=== PATIENT | female | born 1985 | race African-American/Black ===

== ENCOUNTER 2016-12-06 12:49 | Emergency (ER) | payer MEDICAID ==
[~2016-12-06] VITALS: Ht 185.4 cm; Wt 101.6 kg
[~2016-12-06 12:49] MED LIST: ALPR0.254
[2016-12-06 13:57] LABS: Basophils # (auto) 0 uL; Eosinophils # (auto) 0.1 uL; Eosinophils % (auto) 1.5 % (0.0-7.0); Hematocrit 42.2 % (36.0-46.0); Hemoglobin 13.7 g/dL (12.2-16.2); Lymphocytes # (auto) 0.9 uL; Lymphocytes % (auto) 10.5 % (10.0-50.0); Mean Corpuscular Hemoglobin 30.4 pg (28.0-32.0); Mean Corpuscular Hgb Conc. 32.5 g/dL (32.0-36.0); Mean Corpuscular Volume 93.3 fL (80.0-100.0); Mean Platelet Volume 7.5 fL (7.4-10.4); Monocytes # (auto) 0.4 uL; Monocytes % (auto) 4.9 % (0.0-12.0); Neutrophils # (auto) 7.2 uL; Neutrophils % (auto) 83.1 % (37.0-80.0); Platelet Count (auto) 241 10^3/uL (140-450); Red Cell Distribution Width 13.3 % (11.6-16.0); White Blood Cell 8.7 10^3/uL (4.4-10.8)
[2016-12-06 14:21] LABS: Albumin 3.4 g/dL (3.4-5.0); BUN/Creatinine Ratio 13.8; Calcium 8.5 mg/dL (8.5-10.1); Potassium 3.4 mmol/L (3.5-5.1)
[2016-12-06 14:24] LABS: Bilirubin, Total 0.3 mg/dL (0.2-1.0); Total Protein 6.9 g/dL (6.4-8.2)
[2016-12-06 15:21] VITALS: BP 110/88
[2016-12-06] MEDS ORDERED: KETOROLAC TROMETH 60MG/2ML VIAL IM ONE (16:15)
== END 2016-12-06 16:40 | disposition home or self-care (01) ==
LOC: ER 12:51
DX: R07.89 Other chest pain (principal); F41.9 Anxiety disorder, unspecified; F17.210 Nicotine dependence, cigarettes, uncomplicated; F12.10 Cannabis abuse, uncomplicated
CPT/HCPCS: 36415; 80053; 84484; 85025; 93005; 96372; 99285; J1885

== ENCOUNTER 2017-12-09 08:13 | Emergency (ER) | payer MEDICAID ==
[~2017-12-09] VITALS: Ht 185.4 cm; Wt 95.3 kg
[2017-12-09 09:38] VITALS: BP 121/60
[2017-12-09] MEDS ORDERED: cefTRIAXone SOD 1,000 MG VL IM ONE (13:15)
== END 2017-12-09 13:37 | disposition home or self-care (01) ==
LOC: ER 08:13
DX: N63.0 Unspecified lump in unspecified breast (principal); Z83.3 Family history of diabetes mellitus; Z82.49 Family history of ischemic heart disease and other diseases of the circulatory system
CPT/HCPCS: 76642; 96372; 99284; J0696

== ENCOUNTER 2022-10-11 17:31 | Emergency (ER) | payer MEDICAID ==
[~2022-10-11] VITALS: Ht 185.4 cm; Wt 111.1 kg
[2022-10-11 20:55] VITALS: BP 128/71
== END 2022-10-11 21:16 | disposition home or self-care (01) ==
LOC: ER 17:35
DX: L02.412 Cutaneous abscess of left axilla (principal); F17.210 Nicotine dependence, cigarettes, uncomplicated; F12.10 Cannabis abuse, uncomplicated

== ENCOUNTER 2025-06-28 19:22 | Emergency (ER) | payer MEDICAID ==
[~2025-06-28] VITALS: Ht 185.4 cm; Wt 105.9 kg
--- NOTE | 2025-06-28 19:56 | ED.PDOC ---
GI ASSESSMENT HPI Comments 39 year old female presents to the ED with a chief complaint of nausea/vomiting onset 3 days. Patient states she began experiencing nausea/vomiting 3 days ago after eating at [employer]. Patient has been taking nausea medication, has temporary relief of symptoms. Patient states she noticed fatigue, poor appetite, has not being able to drink/eat due to symptoms, intermittent abdominal pain after episodes of vomiting. Denies any PMHx as well as diarrhea, chest pain, shortness of breath, melena, hematemesis, dysuria, hematuria, fever, chills. No other associated symptoms, modifiers, recent injuries or sick contacts present at this time. Chief Complaint: Nausea/Vomiting Time Seen by MD: 19:43 Primary Care Provider: unknown Reviewed Notes: Medications, Allergies Allergies: Coded Allergies: NO KNOWN ALLERGIES (Unverified , 04/30/12) Home Meds Active Scripts Potassium Chloride (Potassium Chloride ER) 10 Meq Tab, 10 MEQ PO BID for 10 Days, #20 TAB Prov:MARLENA LAUREANO MD 06/28/25 Metoclopramide Hcl (Reglan) 10 Mg Tab, 10 MG PO Q6HP PRN, #30 TAB Prov:MARLENA LAUREANO MD 06/28/25 Ondansetron HCl (Ondansetron Hydrochloride) 8 Mg Tab, 8 MG PO Q6HP PRN, #30 TAB Prov:MARLENA LAUREANO MD 06/28/25 Reported Medications Alprazolam (Alprazolam) 0.25 Mg Tab, #120 04/20/14 Information Source: Patient Mode of Arrival: Ambulatory Timing: Days Duration: Since onset Prehospital treatment: None Severity: Moderate Recent: None Recent Hx of: None Pain Location: Diffuse Modifying Factors: Nothing Associated sign and symptoms: Nausea, Vomiting, Abdominal Pain Past Medical History PAST MEDICAL HISTORY: Denies Surgical History: Denies all surgeries HAIR WORKER History: No Pertinent HAIR WORKER History Family History Family History: No family hx of DM, No family hx of Heart tawanna, No family hx of HTN Social History Smoker: Cigarettes Alcohol: Occasionally Drugs: Marijuana Lives In: Home Constitutional: reports: fatigue; denies: chills, diaphoresis, fever, malaise, sweats, weakness, others EENTM: denies: blurred vision, double vision, ear bleeding, ear discharge, ear drainage, ear pain, ear ringing, eye pain, eye redness, hearing loss, mouth pain, mouth swelling, nasal discharge, nose bleeding, nose congestion, nose pain, photophobia, tearing, throat pain, throat swelling, voice changes, others Respiratory: denies: cough, hemoptysis, orthopnea, SOB at rest, shortness of breath, SOB with excertion, stridor, wheezing, others Cardiovascular: denies: chest pain, dizzy spells, diaphoresis, Dyspnea on exertion, edema, irregular heart beat, left arm pain, lightheadedness, palpitations, PND, syncope, others Gastrointestinal: reports: nausea, vomiting; denies: abdomen distended, abdominal pain, blood streaked bowels, constipated, diarrhea, dysphagia, difficulty swallowing, hematemesis, melena, poor appetite, poor fluid intake, rectal bleeding, rectal pain, others Genitourinary: denies: abnormal vagina bleeding, burning, dyspareunia, dysuria, flank pain, frequency, hematuria, incontinence, pain, , vagina discharge, urgency, others Neurological: denies: dizziness, fainting, headache, left sided numbness, left sided weakness, numbness, paresthesia, pre-existing deficit, right sided numbness, right sided weakness, seizure, speech problems, tingling, tremors, weakness, others Musculoskeletal: denies: back pain, gout, joint pain, joint swelling, muscle pain, muscle stiffness, neck pain, others Integumetry: denies: bruises, change in color, change in hair/nails, dryness, laceration, lesions, lumps, rash, wounds, others Allergic/Immunocompromised: denies: Difficulty Healing, Frequent Infections, Hives, Itching, others Hematologic/Lymphatic: denies: anemia, blood clots, easy bleeding, easy bruising, swollen glands, others Endocrine: denies: excessive hunger, excessive sweating, excessive thirst, excessive urination, flushing, intolerance to cold, intolerance to heat, unexplained weight gain, unexplained weight loss, others Psychiatric: denies: anxiety, bipolar disorder, depression, hopeless, panic disorder, schizophrenia, sleepless, suicidal, others All Other Systems: Reviewed and Negative Physical Exam General Appearance: Normal HEENT: Normal ENT Inspection, Pharynx Normal, TMs Normal Neck: Full Range of Motion, Non-Tender, Normal, Normal Inspection Respiratory: Chest Non-Tender, Lungs Clear, No Accessory Muscle Use, No Respiratory Distress, Normal Breath Sounds Cardiovascular: No Edema, No JVD, No Murmur, No Gallop, Normal Peripheral Pulses, Regular Rate/Rhythm Breast Exam: Deferred Gastrointestinal: No Organomegaly, Non Tender, No Pulsatile Mass, Normal Bowel Sounds, Soft Genitalia: Deferred Pelvic: Deferred Rectal: Deferred Extremities: No calf tenderness, Normal capillary refill, Normal inspection, Normal range of motion, Non-tender, No pedal edema Musculoskeletal : Apperance: Normal Neurologic: Alert, interior design director II-XII nml as Tested, No Motor Deficits, Normal Affect, Normal Mood, No Sensory Deficits Cerebellar Function: Normal Reflexes: Normal Skin: Dry, Normal Color, Warm Lymphatic: No Adenopathy Was a procedure done? Was a procedure done?: No GI differential Dx Differential Diagnosis: Incomplete , Inevitable , Missed , Threatened , Bowel Obstruction, Cholangitis, Cholecystitis, Gastritis/PUD, Gastroenteritis, GI hemorrhage, Urinary Obstruction, Other X-Ray, Labs, Meds, VS Vital Signs Date Time Temp Pulse Resp B/P (MAP) Pulse Ox O2 Delivery O2 Flow Rate FiO2 06/29/25 00:22 18 96 Room Air* 0 21 06/29/25 00:22 98.0 68 68 131/61 (84) 94 98.0 06/28/25 19:25 97.8 90 18 102/66 96 97.8 Lab Test 06/28/25 19:49 Range/Units White Blood Count 9.0 4.4-10.8 10^3/uL Red Blood Count 4.78 4.0-5.20 10^6/uL Hemoglobin 14.9 12.2-16.2 g/dL Hematocrit 43.2 36.0-46.0 % Mean Corpuscular Volume 90.4 80.0-100.0 fL Mean Corpuscular Hemoglobin 31.3 28.0-32.0 pg Mean Corpuscular Hemoglobin Concent 34.6 32.0-36.0 g/dL Red Cell Distribution Width 13.5 11.8-14.3 % Platelet Count 306 140-450 10^3/uL Mean Platelet Volume 7.1 6.9-10.8 fL Neutrophils (%) (Auto) 50.5 37.0-80.0 % Lymphocytes (%) (Auto) 41.5 10.0-50.0 % Monocytes (%) (Auto) 6.9 0.0-12.0 % Eosinophils (%) (Auto) 0.4 0.0-7.0 % Basophils (%) (Auto) 0.7 0.0-2.0 % Neutrophils # (Auto) 4.5 1.6-8.6 10 ^3/uL Lymphocytes # (Auto) 3.7 0.4-5.4 10 ^3/uL Monocytes # (Auto) 0.6 0-1.3 10 ^3/uL Eosinophils # (Auto) 0 0-0.8 10 ^3/uL Basophils # (Auto) 0.1 0-0.2 10 ^3/uL Nucleated Red Blood Cells 0.2 % Sodium Level 141 136-145 mmol/L Potassium Level 3.3 L 3.5-5.1 mmol/L Chloride Level 105 98-107 mmol/L Carbon Dioxide Level 24 20-31 mmol/L Anion Gap 12 5-15 Blood Urea Nitrogen 13 9-23 mg/dL Creatinine 1.15 H 0.550-1.02 mg/dL Glomerular Filtration Rate Calc 62 >90 mL/min BUN/Creatinine Ratio 11.3 10.0-20.0 Serum Glucose 122 H 74-106 mg/dL Calcium Level 10.1 8.7-10.4 mg/dL Total Bilirubin 0.5 0.2-1.0 mg/dL Aspartate Amino Transferase (AST) 14 13-40 U/L Alanine Aminotransferase (ALT) 9 7-40 U/L Alkaline Phosphatase 101 46-116 U/L Total Protein 7.4 5.7-8.2 g/dL Albumin 4.9 H 3.2-4.8 g/dL Current Medications Medications (Trade) Dose Ordered Sig/Verónica Route Start Time Stop Time Status Last Admin Metoclopramide HCl (Reglan Injection) 10 mg ONCE ONCE IV 06/28/25 20:00 06/28/25 20:01 DC 06/28/25 20:00 Sodium Chloride 1,000 ml @ 1,000 mls/hr Q1H ONCE IVB 06/28/25 20:00 06/28/25 20:59 DC 06/28/25 20:00 Potassium Chloride (Klor-Con Tablet) 20 meq ONCE ONCE PO 06/28/25 21:15 06/28/25 21:16 DC 06/28/25 21:15 Time of 1ST Reevaluation: 20:13 Reevaluation 1ST: Unchanged Patient Education/Counseling: Diagnosis, Treatment, Prognosis Family Education/Counseling: No Family Present Additional Information The following tests were ordered, and results were reviewed by me: CBC, CMP,UA,PREGUA I discussed treatment and results with medical personnel and: patient Comprehensive systems review obtained and negative except for what is stated in the HPI. SEPSIS Sepsis Screen Date sepsis recognized/suspect: Jun 28, 2025 Time Sepsis recognized/suspect: 1924 Recent Procedure: No On Antibiotic Therapy: No Respiratory Rate >20: No Heart Rate >90: No Temp<36 C (96.8 F) or >38.3 C: No SBP <90 or MAP <65 mmHG: No New Acute Mental Status Change: No Is the patient on CPAP, BIPAP,: No Physician Orders Urinalysis (06/28/25 19:34) Test, Urine (06/28/25 19:34) Vital Signs Date Time Temp Pulse Resp B/P (MAP) Pulse Ox O2 Delivery O2 Flow Rate FiO2 06/29/25 00:22 18 96 Room Air* 0 21 06/29/25 00:22 98.0 68 68 131/61 (84) 94 98.0 06/28/25 19:25 97.8 90 18 102/66 96 97.8 Laboratory Tests Test 06/28/25 19:49 White Blood Count 9.0 10^3/uL (4.4-10.8) Medications Medications Dose Ordered Sig/Verónica Route Start Time Stop Time Status Last Admin Dose Admin Metoclopramide HCl 10 mg ONCE ONCE IV 06/28/25 20:00 06/28/25 20:01 DC 06/28/25 20:00 Potassium Chloride 20 meq ONCE ONCE PO 06/28/25 21:15 06/28/25 21:16 DC 06/28/25 21:15 Sodium Chloride 1,000 ml @ 1,000 mls/hr Q1H ONCE IVB 06/28/25 20:00 06/28/25 20:59 DC 06/28/25 20:00 Departure 1 Departure Time of Disposition: 22:00 Impression: Primary Impression: Atypical chest pain Disposition: HOME / SELF CARE / HOMELESS Condition: Stable e-Prescriptions Potassium Chloride (Potassium Chloride ER) 10 Meq Tab 10 MEQ PO BID for 10 Days, #20 TAB Prov: NOWLIS,MARLENA A MD 06/28/25 Metoclopramide Hcl (Reglan) 10 Mg Tab 10 MG PO Q6HP PRN, #30 TAB Prov: MARLENA LAUREANO MD 06/28/25 Ondansetron HCl (Ondansetron Hydrochloride) 8 Mg Tab 8 MG PO Q6HP PRN, #30 TAB Prov: MARLENA LAUREANO MD 06/28/25 Discharged With: Self Critical Care Note Critical Care Time?: No Stability Stability form required: No I personally scribed for MARLENA LAUREANO MD ([email or web address]) on 06/28/25 at 19:56. Electronically submitted by Mavis Santizo ([email or web address]). I personally scribed for MARLENA LAUREANO MD ([email or web address]) on 06/28/25 at 19:57. Electronically submitted by Mavis Santizo ([email or web address]). MARLENA LAUREANO MD Jun 28, 2025 19:56
[2025-06-28] MEDS: METOCLOPRAMIDE HCL 5MG/ml INJ 2ml VIAL IV ONE (20:00)
[2025-06-28] MEDS: SODIUM CHLORIDE 0.9% 1,000 ML IVB ONE (20:00)
[2025-06-28 20:22] LABS: Hematocrit 43.2 % (36.0-46.0); Hemoglobin 14.9 g/dL (12.2-16.2); Mean Corpuscular Hemoglobin 31.3 pg (28.0-32.0); Mean Corpuscular Volume 90.4 fL (80.0-100.0); Nucleated Red Blood Cells % 0.2 %
[2025-06-28 20:36] LABS: Alkaline Phosphatase 101 U/L (46-116); Anion Gap 12 (5-15); BUN/Creatinine Ratio 11.3 (10.0-20.0); Blood Urea Nitrogen 13 mg/dL (9-23); Calcium 10.1 mg/dL (8.7-10.4); Carbon Dioxide 24 mmol/L (20-31); Chloride 105 mmol/L (98-107); Sodium 141 mmol/L (136-145); Total Protein 7.4 g/dL (5.7-8.2)
[2025-06-28 20:37] LABS: Bilirubin, Total 0.5 mg/dL (0.2-1.0)
[2025-06-28 20:41] LABS: Alanine Aminotransferase 9 U/L (7-40); Albumin 4.9 g/dL (3.2-4.8); Glucose 122 mg/dL (74-106); Potassium 3.3 mmol/L (3.5-5.1)
[2025-06-28] MEDS: POTASSIUM CHL 20 Meq TABLET PO ONE (21:15)
[2025-06-28] MEDS ORDERED: METO-281 PO (21:19)
[2025-06-28] MEDS ORDERED: POTA-228 PO (21:19)
[2025-06-28] MEDS ORDERED: ONDA-180 PO (21:19)
[2025-06-29 00:22] VITALS: BP 131/61; PULSE 68; RESP 18; TEMP 98; O2SAT 96
== END 2025-06-29 00:26 | disposition home or self-care (01) ==
LOC: ER 19:22
DX: R07.89 Other chest pain (principal); F17.210 Nicotine dependence, cigarettes, uncomplicated; F12.90 Cannabis use, unspecified, uncomplicated; F10.90 Alcohol use, unspecified, uncomplicated; Z79.899 Other long term (current) drug therapy; Y90.9 Presence of alcohol in blood, level not specified
CPT/HCPCS: 36415; 80053; 85025; 96361; 96374; 99283; J2765; J7030

== ENCOUNTER 2025-09-22 18:46 | Emergency (ER) | payer MEDICAID ==
[~2025-09-22] VITALS: Ht 185.4 cm; Wt 106.3 kg
[~2025-09-22 18:46] MED LIST changes: +METO-281 PO; +ONDA-180 PO; +POTA-228 PO
--- NOTE | 2025-09-22 19:17 | ED.PDOC ---
SOB-HPI HPI Comments 40 year old female came to ER due to shortness of breath. Patient has history of asthma. Has been feeling unwell for the past week. Was seen at Urgent Care, and Treated as pneumonia, with azithromycin and prednisone. Symptoms however persisted, with productive cough with yellowish sputum, shortness of breath, chest pains, palpitations, myalgia. REVIEW OF SYSTEMS: General: No fever, no chills, or fatigue HEENT: No sore throat, no earache, no congestion, no neck pain. Cardiac: (+) chest pain. (+) palpitations. Lungs: (+) shortness of breath, (+) cough. GI: No nausea, no vomiting, no diarrhea, no constipation, no abdominal pain : No dysuria, frequency, or urgency. No hematuria. Musculoskeletal: No joint pain , no joint swelling, no extremity edema. Skin: No rash, no itching. Neuro: No headache, no dizziness, no weakness PHYSICAL EXAM: General: Awake, alert and oriented. No acute distress. Skin: Skin in warm, dry and intact. Appropriate color for ethnicity. HEENT: The head is normocephalic and atraumatic. Conjunctivae are clear without exudates or hemorrhage. Sclera is non-icteric. EOM are intact. No signs of nystagmus. Eyelids are normal in appearance without swelling or lesions. Oral mucosa is pink and moist Neck: The neck is supple with normal range of motion. No JVD. Cardiac: Heart rate and rhythm are normal. No murmurs, gallops, or rubs are auscultated. Respiratory: No signs of respiratory distress. Lung sounds are clear in all lobes bilaterally without rales, rhonchi, or wheezes. Abdominal: Abdomen is soft, non-tender without distention, guarding or rigidity. Bowel sounds are present and normoactive in all four quadrants. Extremities: Upper and lower extremities are atraumatic in appearance without deformity or edema. Neurological: The patient is awake, alert and oriented to person, place, and time with normal speech. Speech is clear. There is no facial asymmetry. Psychiatric: Appropriate mood and affect. Good judgement and insight. Chief Complaint: Shortness of Breath Time Seen by MD: 19:16 Primary Care Provider: unknown Reviewed notes: Nurses Notes Information Source: Patient Mode of Arrival: Ambulatory Past Medical History PAST MEDICAL HISTORY: Asthma Surgical History: Denies all surgeries ART MANAGER History: No Pertinent ART MANAGER History Family History Family History: No family hx of DM, No family hx of Heart tawanna, No family hx of HTN Social History Smoker: Cigarettes Alcohol: Occasionally Drugs: Marijuana Lives In: Home Was a procedure done? Was a procedure done?: No Differential Dx Differential Diagnosis: Asthma, Bronchitis, Pneumonia, Pulmonary Embolism, Respiratory Distress, URI, Other X-Ray, Labs, Meds, VS Vital Signs Date Time Temp Pulse Resp B/P (MAP) Pulse Ox O2 Delivery O2 Flow Rate FiO2 09/22/25 19:26 20 97 Room Air* 0 21 09/22/25 18:55 87 09/22/25 18:47 97.8 88 20 128/96 95 97.8 Lab Test 09/22/25 22:07 09/22/25 19:40 Range/Units Influenza Type A Antigen Pending Influenza Type B Antigen Pending SARS-CoV-2 Antigen (Rapid) Pending White Blood Count 10.3 4.4-10.8 10^3/uL Red Blood Count 4.56 4.0-5.20 10^6/uL Hemoglobin 13.4 12.2-16.2 g/dL Hematocrit 40.2 36.0-46.0 % Mean Corpuscular Volume 88.3 80.0-100.0 fL Mean Corpuscular Hemoglobin 29.5 28.0-32.0 pg Mean Corpuscular Hemoglobin Concent 33.4 32.0-36.0 g/dL Red Cell Distribution Width 13.4 11.8-14.3 % Platelet Count 331 140-450 10^3/uL Mean Platelet Volume 6.6 L 6.9-10.8 fL Neutrophils (%) (Auto) 63.9 37.0-80.0 % Lymphocytes (%) (Auto) 29.8 10.0-50.0 % Monocytes (%) (Auto) 5.5 0.0-12.0 % Eosinophils (%) (Auto) 0.1 0.0-7.0 % Basophils (%) (Auto) 0.7 0.0-2.0 % Neutrophils # (Auto) 6.6 1.6-8.6 10 ^3/uL Lymphocytes # (Auto) 3.1 0.4-5.4 10 ^3/uL Monocytes # (Auto) 0.6 0-1.3 10 ^3/uL Eosinophils # (Auto) 0 0-0.8 10 ^3/uL Basophils # (Auto) 0.1 0-0.2 10 ^3/uL Nucleated Red Blood Cells 0.1 % D-Dimer, Quantitative 0.28 0.0-0.49 mg/L FEU Sodium Level 143 136-145 mmol/L Potassium Level 3.4 L 3.5-5.1 mmol/L Chloride Level 106 98-107 mmol/L Carbon Dioxide Level 27 20-31 mmol/L Anion Gap 10 5-15 Blood Urea Nitrogen 15 9-23 mg/dL Creatinine 1.16 H 0.550-1.02 mg/dL Glomerular Filtration Rate Calc 61 >90 mL/min BUN/Creatinine Ratio 12.9 10.0-20.0 Serum Glucose 128 H 74-106 mg/dL Calcium Level 9.4 8.7-10.4 mg/dL Troponin I High Sensitivity < 3 L </=34 ng/L B-Type Natriuretic Peptide 17.42 0-100 pg/mL Current Medications Medications (Trade) Dose Ordered Sig/Verónica Route Start Time Stop Time Status Last Admin Albuterol (Ventolin Medneb) 2.5 mg ONCE ONCE NEB 09/22/25 19:15 09/22/25 19:16 DC 09/22/25 19:22 Ipratropium [place] (Atrovent Medneb) 0.5 mg ONCE ONCE NEB 09/22/25 19:15 09/22/25 19:16 DC 09/22/25 19:22 CHEST RADIOGRAPH Indication: sob Technique: Single frontal view of the chest was obtained Comparison: XR CHEST 2 VIEWS on DOS: 11/11/24 FINDINGS: Lines and Tubes: None Lungs: No focal consolidation. Pleura: No effusion. No pneumothorax. Cardiomediastinal contours: Unremarkable Bones: No acute osseous abnormality. IMPRESSION: No acute cardiopulmonary disease. Time of 1ST Reevaluation: 19:17 Reevaluation 1ST: Unchanged Patient Education/Counseling: Need For Follow Up Family Education/Counseling: No Family Present SEPSIS Sepsis Screen Date sepsis recognized/suspect: Sep 22, 2025 Time Sepsis recognized/suspect: 184 Recent Procedure: No On Antibiotic Therapy: No Respiratory Rate >20: No Heart Rate >90: No Temp<36 C (96.8 F) or >38.3 C: No SBP <90 or MAP <65 mmHG: No New Acute Mental Status Change: No Is the patient on CPAP, BIPAP,: No Physician Orders Electrocardigram (09/22/25 18:51) Chest Xray 1 View (09/22/25 19:10) Vital Signs Q1HR (09/22/25 19:10) Saline Lock (09/22/25 19:10) Industrial Roofer Helper (09/22/25 ) Covid19 Antigen Oralia (09/22/25 ) Rapid Influenza A&B (09/22/25 19:10) Vital Signs Date Time Temp Pulse Resp B/P (MAP) Pulse Ox O2 Delivery O2 Flow Rate FiO2 09/22/25 19:26 20 97 Room Air* 0 21 09/22/25 18:55 87 09/22/25 18:47 97.8 88 20 128/96 95 97.8 Laboratory Tests Test 09/22/25 19:40 White Blood Count 10.3 10^3/uL (4.4-10.8) Medications Medications Dose Ordered Sig/Verónica Route Start Time Stop Time Status Last Admin Dose Admin Albuterol 2.5 mg ONCE ONCE NEB 09/22/25 19:15 09/22/25 19:16 DC 09/22/25 19:22 Ipratropium [place] 0.5 mg ONCE ONCE NEB 09/22/25 19:15 09/22/25 19:16 DC 09/22/25 19:22 Departure 1 Departure Time of Disposition: 22:15 Impression: Primary Impression: Atypical chest pain Additional Impression: Palpitations Disposition: HOME / SELF CARE / HOMELESS Condition: Stable Additional Instructions: ED DISCHARGE INSTRUCTIONS Instructions: Please read all instructions provided in this packet carefully. Although you have been discharged from the Emergency Department, this does not mean that you have a "clean bill of health". No definitive diagnosis for your symptoms has been made today. It is possible that you are in the process of developing a serious illness. This is why you must return to the ED without fail if any new or worsening symptoms (especially if your symptoms include chest pain, trouble breathing, abdominal pain, fever, headache, confusion, trouble seeing, or trouble walking) It is also very important that you see a primary care provider (PCP) within the next 3-5 days to follow up. If you are unable to get an appointment, return to the ED for re-evaluation. PALPITATIONS EDUCATION Heart palpitations are the uncomfortable sensation that your heart is beating fast or irregularly. You might feel pounding or fluttering in your chest. It might feel like your heart is skipping a beat. Palpitations may be caused by a heart problem. But they also occur because of many other things. These include other health problems, stress, exercise, or use of alcohol, caffeine, or nicotine. Some prescription medicines and ucwz-mbm-erbqzyn medicines can also cause heart palpitations. Nearly everyone has palpitations from time to time. Depending on your symptoms, your doctor may need to do more tests to try to find the cause of your palpitations. Follow-up care is a gomez part of your treatment and safety. Be sure to make and go to all appointments, and call your doctor if you are having problems. It's also a good idea to know your test results and keep a list of the medicines you take. How can you care for yourself at home? If they trigger palpitations, limit or avoid alcohol or caffeine. Do not smoke. If you need help quitting, talk to your doctor about stop-smoking programs and medicines. These can increase your chances of quitting for good. Ask your doctor whether you can take whis-gec-adehlgi medicines (such as decongestants). These may cause palpitations. If you think you may have a problem with drug use, talk to your doctor. Certain drugs, such as cocaine and methamphetamine, can affect your heart rate and rhyth m. If you have palpitations again, take deep breaths and try to relax. Or try any physical things that your doctor recommended. These may include bearing down or coughing. If you start to feel lightheaded, sit or lie down to avoid injuries that might result if you pass out and fall down. If your doctor recommends it, keep a record of your palpitations and bring it to your next doctor's appointment. Write down: The date and time. Your pulse. (If your heart is beating fast, it may be hard to count your pulse.) If your heart rhythm was regular or irregular. What you were doing when the palpitations started. How long the palpitations lasted. Any other symptoms. What may have helped your symptoms go away. If an activity causes palpitations, slow down or stop. Talk to your doctor before you do that activity again. Take your medicines exactly as prescribed. Call your doctor if you think you are having a problem with your medicine. When should you call for help? Call 911 anytime you think you may need emergency care. For example, call if: You passed out (lost consciousness). You have symptoms of a heart attack. These may include: Chest pain or pressure, or a strange feeling in the chest. Sweating. Shortness of breath. Pain, pressure, or a strange feeling in the back, neck, jaw, or upper belly or in one or both shoulders or arms. Lightheadedness or sudden weakness. A fast or irregular heartbeat. After you call 911, the dimethylaniline sulfator operator may tell you to chew 1 adult-strength or 2 to 4 low-dose aspirin. Wait for an ambulance. Do not try to drive yourself. You have symptoms of a stroke. These may include: Sudden numbness, tingling, weakness, or loss of movement in your face, arm, or leg, especially on only one side of your body. Sudden vision changes. Sudden trouble speaking. Sudden confusion or trouble understanding simple statements. Sudden problems with walking or balance. A sudden, severe headache that is different from past headaches. Call your doctor now or seek immediate medical care if: You have heart palpitations and: Are dizzy or lightheaded, or you feel like you may faint. Have new or increased shortness of breath. Watch closely for changes in your health, and be sure to contact your doctor if: You continue to have heart palpitations. Current as of: June 30, 2024 Author: Pradeep [employer] Staff? CHEST PAIN EDUCATION There are many things that can cause chest pain. Some are not serious and will get better on their own in a few days. But some kinds of chest pain need more testing and treatment. Your doctor may have recommended a follow-up visit in the next few days. If you are not getting better, you may need more tests or treatment. Even though your doctor has released you, you still need to watch for any problems. The doctor carefully checked you, but sometimes problems can develop later. If you have new symptoms or if your symptoms do not get better, get medical care right away. If you have worse or different chest pain or pressure that lasts more than 5 minutes or you passed out (lost consciousness), call 911 or seek other emergency help right away. A medical visit is only one step in your treatment. Even if you feel better, you still need to do what your doctor recommends, such as going to all suggested follow-up appointments and taking medicines exactly as directed. This will help you recover and help prevent future problems. How can you care for yourself at home? Rest until you feel better. Take your medicine exactly as prescribed. Call your doctor if you think you are having a problem with your medicine. Do not drive after taking a prescription pain medicine. When should you call for help? Call 911 if: You passed out (lost consciousness). You have severe difficulty breathing. You have symptoms of a heart attack. These may include: Chest pain or pressure, or a strange feeling in your chest. Sweating. Shortness of breath. Nausea or vomiting. Pain, pressure, or a strange feeling in your back, neck, jaw, or upper belly or in one or both shoulders or arms. Lightheadedness or sudden weakness. A fast or irregular heartbeat. After you call 911, the dimethylaniline sulfator operator may tell you to chew 1 adult-strength or 2 to 4 low-dose aspirin. Wait for an ambulance. Do not try to drive yourself. Call your doctor now or seek immediate medical care if: You have any trouble breathing. You have new or different chest pain. You are dizzy or lightheaded, or you feel like you may faint. Watch closely for changes in your health, and be sure to contact your doctor if you do not get better as expected. Current as of: June 30, 2024 Author: [employer] Staff? Comments 40-year-old female with chest congestion and palpitations. EKG negative for signs of ischemia or arrhythmia. High sensitivity troponin negative. CXR shows no acute process. Presentation not suggestive of acute coronary syndrome, pulmonary embolism or aortic dissection. Patient improved at time of discharge. Patient has not been hypoxic, tachycardic or in respiratory distress or dyspneic during the ED observation. Patient able to ambulate without difficulty. Patient felt stable for discharge to follow up with PCP promptly. Patient advised to return to the ED with any new, worsening or concerning symptoms or inability to follow up with PCP. Critical Care Note Critical Care Time?: No Stability Stability form required: No Heart Score Heart Score: Heart Score Response (Comments) Value History Slightly Suspicious 0 EKG Normal 0 Age <45 0 Risk Factors No known risk factors 0 Troponin Normal limit 0 Total 0 I personally scribed for KOKI NEIL MD ([email or web address]) on 09/22/25 at 19:17. Electronically submitted by Drake Schroeder ([email or web address]). I personally scribed for KOKI NEIL MD ([email or web address]) on 09/22/25 at 20:05. Electronically submitted by Drake Schroeder ([employer]). KOKI NEIL MD Sep 22, 2025 19:17
[2025-09-22] MEDS: IPRATROPIUM BROM 0.5 MG/2.5ML INH SOL NEB ONE (19:22)
[2025-09-22] MEDS: ALBUTEROL SULF 2.5 MG/0.5ML(0.5%) NEB SOLN NEB ONE (19:22)
--- NOTE | 2025-09-22 19:42 | DVH ---
CHEST RADIOGRAPH Indication: sob Technique: Single frontal view of the chest was obtained Comparison: XR CHEST 2 VIEWS on DOS: 11/11/24 FINDINGS: Lines and Tubes: None Lungs: No focal consolidation. Pleura: No effusion. No pneumothorax. Cardiomediastinal contours: Unremarkable Bones: No acute osseous abnormality. IMPRESSION: No acute cardiopulmonary disease.
[2025-09-22 19:49] LABS: Hematocrit 40.2 % (36.0-46.0); Hemoglobin 13.4 g/dL (12.2-16.2); Mean Corpuscular Hemoglobin 29.5 pg (28.0-32.0); Mean Corpuscular Volume 88.3 fL (80.0-100.0); Nucleated Red Blood Cells % 0.1 %
[2025-09-22 19:55] LABS: Chloride 106 mmol/L (98-107); Sodium 143 mmol/L (136-145)
[2025-09-22 19:56] LABS: Anion Gap 10 (5-15); Calcium 9.4 mg/dL (8.7-10.4); Carbon Dioxide 27 mmol/L (20-31)
[2025-09-22 20:01] LABS: BUN/Creatinine Ratio 12.9 (10.0-20.0); Blood Urea Nitrogen 15 mg/dL (9-23)
[2025-09-22 20:42] LABS: Glucose 128 mg/dL (74-106); Potassium 3.4 mmol/L (3.5-5.1)
[2025-09-22 22:29] LABS: COVID19 ANTIGEN SOFIA FIA NEGATIVE (NEGATIVE)
[2025-09-22 23:08] VITALS: BP 114/73; PULSE 69; RESP 16; TEMP 97.5; O2SAT 96
--- NOTE | 2025-09-26 14:21 | ECG ---
[facility] Test Date: 2025-09-22 Test Time: 18:55:26 Pat Name: JASON WILKINS Department: ED Room: Gender: F Field Installation Technician: raghu : 1985 Requested By: KOKI NEIL Order Number: [id number] Reading MD: Hiro Amaya Measurements Intervals [place] Rate: 87 P: 61 [place]: 123 QRS: 61 QRSD: 83 T: 32 QT: 362 QTc: 436 Interpretive Statements Sinus rhythm Probable left atrial enlargement Electronically Signed On 09-26-2025 14:54:18 PDT by Hiro Amaya Please click the below link to view image of tracing.
== END 2025-09-22 23:36 | disposition home or self-care (01) ==
LOC: ER 18:46
DX: R07.89 Other chest pain (principal); R00.2 Palpitations; F17.210 Nicotine dependence, cigarettes, uncomplicated; F10.90 Alcohol use, unspecified, uncomplicated; F12.90 Cannabis use, unspecified, uncomplicated; J45.909 Unspecified asthma, uncomplicated; Z20.822 Contact with and (suspected) exposure to COVID-19; Y90.9 Presence of alcohol in blood, level not specified
CPT/HCPCS: 36415; 71045; 80048; 83880; 84484; 85025; 85379; 87426; 87804; 93005; 94640